=== PATIENT | female | born 1980 | race Caucasian/White ===

== ENCOUNTER → 2017-07-16 08:16 | Outpatient (CLI) | payer BC ==
[2013-06-02 03:55] VITALS: BMI 23.2
[~2017-07-16 08:16] MED LIST: MOTRIN600 MG PO; NORCO 10/325 TA1 TA1 PO; PERCOCET 5/3251 TA1 PO; PRENATAL COMPLE1 TAB PO; ZOFRAN ODT4 MG/UDTAB PO
== END | disposition home or self-care (01) ==
LOC: D.US 08:16
DX: R10.11 Right upper quadrant pain (principal)

== ENCOUNTER → 2017-11-28 07:57 | Outpatient (CLI) | payer BC ==
[2013-06-02 03:55] VITALS: BMI 23.2
== END | disposition home or self-care (01) ==
LOC: D.NM 07:57
DX: R10.9 Unspecified abdominal pain (principal)

== ENCOUNTER 2017-12-11 06:00 | Day surgery (SDC) | payer BC ==
[2017-12-10 14:50] LABS: BASOPHILS 0.5 % (0-2); EOSINOPHILS 3.6 % (0-7); HEMATOCRIT 36.6 % (36.0-48.0); HEMOGLOBIN 12.1 g/dL (12-16); LYMPHOCYTES 41.4 % (15-50); MCH 29.2 pg (26.0-34.0); MCHC 33.1 g/dL (31.0-37.0); MCV 88.2 fL (80.0-100.0); NEUTROPHILS 45.5 % (40-80); RBC 4.15 10x6/uL (4.00-5.40); RDW 14.2 % (11.5-14.5); WBC 4.2 10x3/uL (4.8-10.8)
[2017-12-10 14:51] LABS: PLATELET COUNT 197 10x3/uL (130-400)
[2017-12-10 14:58] LABS: CALC OSMOLALITY 279 mosm/kg (275-300); CALCIUM 8.7 mg/dL (8.5-10.1); CARBON DIOXIDE 27.1 mmol/L (21.0-32.0); CHLORIDE - SERUM 106 mmol/L (98-107); CREATININE - SERUM 0.7 mg/dL (0.6-1.3); GLUCOSE 85 mg/dL (74-106); POTASSIUM - SERUM 3.7 mmol/L (3.5-5.1); SODIUM 141 mmol/L (136-145); UREA NITROGEN 13 mg/dL (7-18); eGFR NON AFRICAN AMERICAN > 90 mL/min (90-120)
[~2017-12-11] VITALS: Ht 149.9 cm; Wt 52.2 kg
--- NOTE | ~2017-12-11 | OP ---
PATIENT NAME: MATT LOVE MEDICAL RECORD: [id number] :78 LOCATION:D.OPS ADMISSION DATE: SURGEON: REINALDO MCDOWELL MD DATE OF OPERATION: 12/11/2017 PREOPERATIVE DIAGNOSES: 1. Biliary dyskinesia. 2. Hyperthyroidism. POSTOPERATIVE DIAGNOSES: 1. Biliary dyskinesia. 2. Hyperthyroidism. PROCEDURE: Laparoscopic cholecystectomy. SURGEON: Reinaldo Mcdowell MD MOLECULAR BIOLOGY SCIENTIST: Matt Paredes APRN REPORT OF PROCEDURE: The patient's abdomen was prepped and draped in sterile fashion. A cutdown was made on the inferior aspect of the umbilicus, 0 Vicryls were placed in the fascia bilaterally and the fascia was incised with 15-blade. I then bluntly entered the peritoneal cavity and placed a 12-mm Justino port. Under direct visualization, a 5-mm trocar was placed in the epigastrium and two more 5-mm trocars were placed in the right subcostal region. The gallbladder was grasped and elevated. There was some inflammatory adhesions present and these were teased down carefully with blunt dissection. The cystic artery and cystic duct were dissected free and these were clipped proximally and distally and ligated in standard fashion. The gallbladder was taken off the liver bed using electrocautery and placed into the right upper quadrant. Any bleeding from the liver bed was then treated with electrocautery. At this point, the ports and insufflation were then removed and the gallbladder was taken out through the umbilicus. The umbilical fascia was closed with interrupted 0 Vicryls times 3. The wounds were then irrigated out with normal saline and infused with 10 mL of 0.25% Marcaine with epinephrine. The skin incisions were all closed with subcutaneous 5-0 Monocryl and dressed appropriately. COMPLICATIONS: None. CONDITION: Stable. ANESTHESIA: General endotracheal and local. BLOOD LOSS: Minimal. TRANSINT:[id number] Voice Confirmation ID: [id number] DOCUMENT ID: [id number] OPERATIVE REPORT [id number] LOVEMATT REINALDO ALARCON MD at 1714 CC: SHO MCCALLUM MD [id number] DICTATION DATE: 12/11/17 0847 [facility]: 12/11/17 0937 [facility] 12/11/17 [id number] [place] [address]
[2017-12-11 06:20] VITALS: BP 114/73; Ht 149.9 cm; Wt 52.2 kg
[2017-12-11] MEDS ORDERED: NORCO 10-325 TA1 TAB PO (08:43)
== END 2017-12-11 11:45 | disposition home or self-care (01) ==
LOC: D.OPS 06:00 → D.PAN 08:00 → D.OPS 08:00
PROVIDERS: Surgery
DX: K82.8 Other specified diseases of gallbladder (principal)